=== PATIENT | male | born 1985 | race Caucasian/White ===

== ENCOUNTER 2017-12-31 13:22 | Emergency (ER) | payer OTHER ==
[~2017-12-31] VITALS: Ht 172.7 cm; Wt 81.6 kg
[2017-12-31 14:42] VITALS: BP 120/86
== END 2017-12-31 14:48 | disposition home or self-care (01) ==
LOC: ER 13:22
DX: L03.116 Cellulitis of left lower limb (principal); F17.210 Nicotine dependence, cigarettes, uncomplicated; Z48.01 Encounter for change or removal of surgical wound dressing; Z86.19 Personal history of other infectious and parasitic diseases

== ENCOUNTER 2019-12-10 12:17 | Emergency (ER) | payer MEDICAID, OTHER ==
[~2019-12-10] VITALS: Ht 177.8 cm; Wt 131.5 kg
[2019-12-10] MEDS ORDERED: SODIUM CHLORIDE 0.9% 1,000 ML IV ONE ×2 (12:26)
[2019-12-10 12:52] VITALS: BP 126/77
[2019-12-10 13:44] LABS: Basophils # (auto) 0.1 10 ^3/uL (0-0.2); Basophils % (auto) 0.9 % (0.0-2.0); Eosinophils # (auto) 0.2 10 ^3/uL (0-0.8); Eosinophils % (auto) 1.9 % (0.0-7.0); Hemoglobin 13.6 g/dL (13.5-17.5); Lymphocytes # (auto) 1.1 10 ^3/uL (0.4-5.4); Mean Corpuscular Hemoglobin 31.4 pg (28.0-32.0); Mean Corpuscular Volume 92.3 fL (80.0-100.0); Monocytes # (auto) 0.5 10 ^3/uL (0-1.3); Monocytes % (auto) 6.1 % (0.0-12.0); Neutrophils # (auto) 6.8 10 ^3/uL (1.6-8.6); Neutrophils % (auto) 78.1 % (37.0-80.0); Nucleated Red Blood Cells % 0.1 %; Platelet Count (auto) 287 10^3/uL (140-450); Red Blood Cells 4.34 10^6/uL (4.5-5.90); White Blood Cell 8.7 10^3/uL (4.4-10.8)
[2019-12-10 13:54] LABS: Albumin 3.6 g/dL (3.4-5.0); Anion Gap 5 (5-15); Blood Urea Nitrogen 16 mg/dL (7-18); Calcium 8.3 mg/dL (8.5-10.1); Carbon Dioxide 26 mmol/L (21-32); Chloride 109 mmol/L (98-107); Glucose 111 mg/dL (74-106); Potassium 3.3 mmol/L (3.5-5.1); Sodium 140 mmol/L (136-145)
[2019-12-10 14:01] LABS: Alanine Aminotransferase 98 U/L (16-61); Alkaline Phosphatase 78 U/L (45-117); Aspartate Aminotransferase 104 U/L (15-37); BUN/Creatinine Ratio 18.4; Bilirubin, Total 0.8 mg/dL (0.2-1.0); GFR African American 128 mL/min; GFR Non-African American 106 mL/min; Total Protein 6.7 g/dL (6.4-8.2)
[2019-12-10 14:44] LABS: Urine Bacteria NONE SEEN /hpf (None Seen); Urine Blood Negative /uL (Negative); Urine Mucus FEW (None Seen); Urine WBC 1 /hpf (0 - 3)
[2019-12-10] MEDS ORDERED: cefTRIAXone 1GM/50ML D5W 50 ML IV ONE (14:45)
[2019-12-10 14:56] LABS: Alcohol, Urine < 3.0 mg/dL (0-10); Amphetamine Screen, Urine POSITIVE (NEGATIVE); Barbiturate Scree,Urine NEGATIVE (NEGATIVE); Benzodiazephine Screen, Urine NEGATIVE (NEGATIVE); Cannabinoid Screen, Urine NEGATIVE (NEGATIVE); Cocaine Screen, Urine NEGATIVE (NEGATIVE); Opiate Scree,Urine POSITIVE (NEGATIVE); Phencyclidine Screen, Urine NEGATIVE (NEGATIVE)
== END 2019-12-10 15:14 | disposition left against medical advice (07) ==
LOC: EDBD 12:17 → EDUNIT# 12:17 → ER 12:17
DX: T67.5XXA Heat exhaustion, unspecified, initial encounter (principal); R51 Headache; Z53.21 Procedure and treatment not carried out due to patient leaving prior to being seen by health care provider
CPT/HCPCS: 36415; 70450; 71045; 80053; 80307; 81001; 84484; 85025

== ENCOUNTER 2020-07-10 05:01 | Emergency (ER) | payer MEDICAID, OTHER ==
[~2020-07-10] VITALS: Ht 172.7 cm; Wt 86.2 kg
[2020-07-10 09:32] LABS: Basophils # (auto) 0.1 10 ^3/uL (0-0.2); Basophils % (auto) 0.9 % (0.0-2.0); Eosinophils # (auto) 0.2 10 ^3/uL (0-0.8); Eosinophils % (auto) 2.8 % (0.0-7.0); Hematocrit 42.5 % (41.0-53.0); Hemoglobin 14.7 g/dL (13.5-17.5); Lymphocytes # (auto) 1.3 10 ^3/uL (0.4-5.4); Mean Corpuscular Hemoglobin 31.2 pg (28.0-32.0); Mean Corpuscular Hgb Conc. 34.7 g/dL (32.0-36.0); Mean Corpuscular Volume 89.9 fL (80.0-100.0); Monocytes # (auto) 0.4 10 ^3/uL (0-1.3); Monocytes % (auto) 7.7 % (0.0-12.0); Neutrophils # (auto) 3.9 10 ^3/uL (1.6-8.6); Neutrophils % (auto) 66.6 % (37.0-80.0); Nucleated Red Blood Cells % 0.1 %; Platelet Count (auto) 329 10^3/uL (140-450); Red Blood Cells 4.73 10^6/uL (4.5-5.90); Red Cell Distribution Width 12.9 % (11.8-14.3); White Blood Cell 5.8 10^3/uL (4.4-10.8)
[2020-07-10 09:41] LABS: Albumin 3.9 g/dL (3.4-5.0); Anion Gap 3 (5-15); Blood Urea Nitrogen 14 mg/dL (7-18); Calcium 8.7 mg/dL (8.5-10.1); Carbon Dioxide 31 mmol/L (21-32); Chloride 104 mmol/L (98-107); Glucose 113 mg/dL (74-106); Potassium 4.6 mmol/L (3.5-5.1); Sodium 138 mmol/L (136-145)
[2020-07-10 09:48] LABS: Alanine Aminotransferase 165 U/L (16-61); Alkaline Phosphatase 93 U/L (45-117); Aspartate Aminotransferase 117 U/L (15-37); BUN/Creatinine Ratio 16.1; Bilirubin, Total 0.5 mg/dL (0.2-1.0); GFR African American 127 mL/min; GFR Non-African American 105 mL/min; Total Protein 7.9 g/dL (6.4-8.2)
[2020-07-10 10:17] VITALS: BP 121/87
[2020-07-10 10:20] LABS: INR 0.97 (0.9-1.15); Partial Thromboplastin Time 27.8 sec (23.0-31.2)
[2020-07-10 11:56] LABS: Alcohol, Urine < 3.0 mg/dL (0-10); Amphetamine Screen, Urine POSITIVE (NEGATIVE); Barbiturate Scree,Urine NEGATIVE (NEGATIVE); Benzodiazephine Screen, Urine NEGATIVE (NEGATIVE); Cannabinoid Screen, Urine NEGATIVE (NEGATIVE); Cocaine Screen, Urine NEGATIVE (NEGATIVE); Opiate Scree,Urine POSITIVE (NEGATIVE); Phencyclidine Screen, Urine NEGATIVE (NEGATIVE)
[2020-07-10 12:05] LABS: Urine Bacteria FEW /hpf (None Seen); Urine Blood Negative /uL (Negative); Urine Hyaline Cast FEW /lpf (0 - 2); Urine Mucus FEW (None Seen); Urine Specific Gravity 1.024 (1.001-1.035); Urine WBC 1 /hpf (0 - 3)
== END 2020-07-10 11:22 | disposition left against medical advice (07) ==
LOC: EDBD 05:01 → ER 05:01
DX: T40.1X1A Poisoning by heroin, accidental (unintentional), initial encounter (principal); R94.5 Abnormal results of liver function studies; R41.82 Altered mental status, unspecified; X58.XXXA Exposure to other specified factors, initial encounter; Y93.89 Activity, other specified; Y92.89 Other specified places as the place of occurrence of the external cause; Y99.8 Other external cause status
CPT/HCPCS: 36415; 71046; 80053; 80307; 81001; 84484; 85025; 85610; 85730; 93005